=== PATIENT | male | born 1975 | race Two or more races ===

== ENCOUNTER 2022-09-14 11:14 | Emergency (ER) | payer BC ==
[~2022-09-14] VITALS: Ht 182.9 cm; Wt 79.4 kg
--- NOTE | 2022-09-14 11:19 | NUR ---
ASSUME PT CARE, C/O PRESSURE LIKE CHEST PAIN NON RADIATING STARTED AT AROUND 1050 WHILE AT WORK. NO CARDIAC HISTORY. DENIES SOB. GOWNED AND PLACED ON MONITOR. VSS. AWAITING MD APARICIO.
--- NOTE | 2022-09-14 11:20 | NUR ---
DR JACKSON AT BEDSIDE FOR EVAL.
[2022-09-14 12:24] LABS: BASOPHILS % (AUTO) 0.3 % (0.0-2.0); EOSINOPHILS % (AUTO) 1.2 % (0.0-6.0); HEMATOCRIT 46 % (39-51); HEMOGLOBIN 15.6 g/dL (13.5-17.5); LYMPHOCYTES # (AUTO) 2.7 K/uL (0.8-4.8); LYMPHOCYTES % (AUTO) 41.5 % (20.0-44.0); MEAN CORPUSCULAR HGB CONC 34 g/dl (31.0-36.0); MEAN CORPUSCULAR VOLUME 91 fL (80-96); MONOCYTES # (AUTO) 0.4 K/uL (0.1-1.30); MONOCYTES % (AUTO) 6.5 % (2.0-12.0); NEUTROPHILS # (AUTO) 3.3 K/uL (1.8-8.9); NEUTROPHILS % (AUTO) 50.5 % (43.0-81.0); PLATELET COUNT (AUTO) 253 K/uL (150-450); WHITE BLOOD COUNT (AUTO) 6.6 K/uL (4.3-11.0)
[2022-09-14 12:52] LABS: CALCIUM, SERUM 9.7 mg/dL (8.5-10.1); CARBON DIOXIDE 27 mmol/L (21-32); CHLORIDE 102 mmol/L (98-107); CREATININE 1.2 mg/dL (0.6-1.3); GLUCOSE 163 mg/dL (74-106); POTASSIUM 3.2 mmol/L (3.5-5.1); SODIUM SERUM 140 mmol/L (136-145); UREA NITROGEN, BLOOD 17 mg/dL (7-18)
[2022-09-14 13:00] LABS: ALANINE AMINOTRANSFERASE 33 U/L (12-78); ALBUMIN 4.4 g/dL (3.4-5.0); ALKALINE PHOSPHATASE 72 U/L (46-116); ASPARTATE AMINOTRANSFERASE 11 U/L (15-37); BILIRUBIN,DIRECT 0.1 mg/dL (0.0-0.2); BILIRUBIN,TOTAL 0.5 mg/dL (0.2-1.0); TOTAL PROTEIN, SERUM 8.3 g/dL (6.4-8.2)
--- NOTE | 2022-09-14 14:30 | NUR ---
DR JACKSON AT BEDSIDE AND DISCUSSED TO PT. REGARDING DISCHARGE TO HOME NOW.
[2022-09-14 14:53] VITALS: BP 139/82
[2022-09-14] MEDS ORDERED: KETOROLAC TROMETHAMINE 15 MG/ML VIAL ONE (22:18)
== END 2022-09-14 14:54 | disposition home or self-care (01) ==
LOC: ER 11:24
DX: R07.89 Other chest pain (principal)
CPT/HCPCS: 36415; 71045-TC; 80048-TC; 80076-TC; 83880; 84484-TC; 85025-TC; J1885